=== PATIENT | female | born 1945 | race Caucasian/White ===

== ENCOUNTER 2025-07-18 21:57 | Emergency (ER) | payer MEDICARE, BC, SELFPAY ==
[2025-07-18 22:08] VITALS: BP 189/82
[2025-07-18 22:58] VITALS: BP 150/49
[2025-07-18 23:00] VITALS: BP 137/55
[2025-07-18 23:15] VITALS: BMI 28.5
[2025-07-18 23:24] VITALS: BP 178/76
--- NOTE | 2025-07-18 23:33 | ED.GENMED ---
History of Present Illness
General
Chief Complaint: Dizziness
Time Seen by Provider: 07/18/25 23:15
History of Present Illness
History of Present Illness:
79-year-old female presents to the emergency department for evaluation of abrupt onset of dizziness and gait instability this evening. States she had fallen asleep on the couch watching a movie and when she got up she felt very unsteady. Symptoms
persisted for several minutes that she felt as though she may fall, this was then accompanied by shaking and sweating. She noted her blood pressure was markedly elevated at home thus prompting her to come to the ED. Symptoms seem to improve at
rest however she does feel mild lightheadedness without movement. No associated headache or vision changes. No chest pain, shortness of breath, nausea, vomiting. No recent febrile illnesses or flulike symptoms.
Review of Systems
Review of Systems
Allergies reviewed?: Yes
All Other Systems: ROS reviewed and negative except as documented in HPI and ROS
Phy Exam
Physical Exam
Physical Exam:
GEN: Well appearing, NAD, WDWN
HEENT: Oral mucosa moist, no scleral icterus, no nasal congestion
Cardiac: Regular rate and rhythm, no murmur
Lung: No respiratory distress, no tachypnea
MSK: No gross deformity or injuries
Skin: Good color, no pallor or jaundice, no rashes
Neuro: AO x3; CN II-XII grossly intact. BUE strength 5/5 in all cardenas, sensation intact and symmetric. BLE strength 5/5 in all cardenas, sensation intact and symmetric, no appreciable nystagmus
Psych: Calm, cooperative
Course
Orders/Labs/Results
Orders:
Orders
07/18/25 21:58
EKG [Electrocardiogram (*1)] Urgent
Reason for Study: Vertigo / Dizzy
EKG- Treatment ONCE
07/18/25 22:12
CT Head W/o Iv Contrast Urgent
Comment:
Reason For Exam: dizziness/balance issue
07/18/25 23:32
diazePAM [Valium Injection] 2 mg IV NOW STA
07/18/25 23:38
Purified Water Eye Wash [Dacriose Eye Wash Solution] 120 ml .ROUTE .STK-MED ONE
07/18/25 23:51
Complete Blood Count/With Diff Urgent
Comprehensive Metabolic Panel Urgent
Abnormal Lab Results
07/18/25
23:51
Absolute Monos (auto) 0.7 H 10^3/uL
(0.1-0.6)
Potassium 3.4 L mmol/L
(3.5-5.1)
BUN 21 H mg/dl
(7-17)
Glucose 152 H mg/dl
(70-99)
Total Bilirubin 0.1 L mg/dl
(0.2-1.3)
Alkaline Phosphatase 131 H U/L
(38-126)
Total Protein 5.9 L g/dl
(6.3-8.2)
07/18/25 23:51
07/18/25 23:51
Vital Signs
Initial and Last Documented VS:
Initial Vital Signs
Temp Pulse Resp BP Pulse Ox
98.0 F 76 20 189/82 99
07/18/25 22:08 07/18/25 22:08 07/18/25 22:08 07/18/25 22:08 07/18/25 22:08
Last Documented Vital Signs
Temp Pulse Resp BP Pulse Ox
98.0 F 49 14 167/70 96
07/18/25 22:08 07/19/25 01:28 07/19/25 01:28 07/19/25 01:31 07/19/25 01:28
MDM/Problems Addressed
MDM/Problems Addressed:
Suspect benign positional vertigo given the clear positional nature of the patient's symptoms. On pressure markedly elevated while symptomatic it is improved spontaneously in the ED. She was given 1 dose of IV diazepam with significant improvement
in her symptoms and was able to ambulate without difficulty in the ED. CT of the head is unremarkable. No other focal neurologic symptoms concerning for CVA. Suitable for discharge home
Comment
Comment:
EKG independently interpreted by me shows normal sinus rhythm at a rate of [address] changes concerning for ischemia
*Pulse Oximetry
SaO2: 100
Oxygen Mode of Delivery: Room air
Patient hypoxic: no
*Critical Care Note
Total Time (30-74mins, 75-104mins- exclusive of procedures): Not Applicable
ED Attending Note
-
Portions of this chart may have been created with voice recognition software.� Occasional wrong word or��sound alike� substitutions may have occurred due to the inherent limitations of voice recognition software.
Discharge Plan
Departure
Patient Disposition: Home (Routine Discharge)
Date of Disposition: 07/19/25
Time of Disposition: 01:35
Patient with high blood pressure during this ER visit?: No
Discharge Problem:
Benign paroxysmal positional vertigo
Instructions: Vertigo (a Type of Dizziness) (DC)
Prescriptions:
New
meclizine 12.5 mg tablet
12.5 - 25 mg PO TID PRN (Reason: dizziness) Qty: 20 0RF
Referrals:
RON FOX [Other]
Stand Alone Forms: Return to Work
Interventions
Interventions:
*General Assessment Last Done: 07/18/25 22:08
*Neglect/Abuse Screening Last Done: 07/18/25 23:19
*ED COVID-19 Vaccine History Last Done: 07/18/25 23:16
*ED Influenza Vaccine History Last Done: 07/18/25 23:16
[facility] Fall Risk Assessment Tool Last Done: 07/18/25 23:19
*Risk Screen - Suicide (C-SSRS) Last Done: 07/18/25 23:19
*Nursing Disposition Last Done: 07/19/25 01:48
ED- Neurological Assessment Last Done: 07/18/25 23:16
ED- Cardiac Assessment Last Done: 07/18/25 23:16
Discharge Date and Time
Discharge Date/Time: 07/19/25 01:48
Print Language: ICELANDIC
[2025-07-18] MEDS: VALIUM INJECTION 2 MG IV (23:55)
[2025-07-19] VITALS: BP 155/50
[2025-07-19 00:01] LABS: Hematocrit 38.1 % (37.0-47.0); Hemoglobin 12.8 g/dL (12.0-16.0); Mean Corp Hgb Conc. 33.6 g/dL (33.0-37.0); Mean Corpuscular Volume 89.2 fL (81.0-99.0); Nucleated Red Blood Cells % 0 %; Platelet Count 273 10^3/uL (130-400); Red Cell Dist. Width 13.0 % (11.5-14.5)
[2025-07-19 00:46] LABS: ALT (SGPT) 13 U/L (0-35); AST (SGOT) 16 U/L (14-36); Albumin 3.6 g/dl (3.5-5.0); Alkaline Phosphatase 131 U/L (38-126); Blood Urea Nitrogen 21 mg/dl (7-17); Calcium 9.3 mg/dl (8.4-10.2); Carbon Dioxide 23 mmol/L (22-30); Chloride 107 mmol/L (98-107); Estimated Creatinine Clearance 59 ml/min; Glucose 152 mg/dl (70-99); Potassium 3.4 mmol/L (3.5-5.1); Sodium 137 mmol/L (135-145); Total Protein 5.9 g/dl (6.3-8.2); eGFR > 60.00
[2025-07-19 01:00] VITALS: BP 120/45
[2025-07-19 01:31] VITALS: BP 167/70
== END 2025-07-19 01:48 | disposition home or self-care (01) ==
LOC: EMR 21:57
PROVIDERS: Physician Assistant; EMERGENCY PHYSICIAN Student in an Organized Health Care Education/Training Program
DX: H81.10 Benign paroxysmal vertigo, unspecified ear (principal)
CPT/HCPCS: 99284; 96374; 70450; 80053; 85025; 93005